=== PATIENT | female | born 1960 | race Caucasian/White ===

== ENCOUNTER 2019-05-08 17:18 | Emergency (ER) | payer OTHER ==
[~2019-05-08] VITALS: Ht 165.1 cm; Wt 104.6 kg
[~2019-05-08 17:18] MED LIST: GUAI100G2 PO
[2019-05-08] MEDS ORDERED: ONDANSETRON PF 4 MG/2 ML VIAL. IVP ONE (17:45)
[2019-05-08] MEDS ORDERED: IV NORMAL SALINE 1,000ML 1,000 ML IV ONE (17:45)
[2019-05-08] MEDS ORDERED: KETOROLAC 30 MG/ML VIAL. IVP ONE (17:45)
--- NOTE | 2019-05-08 17:47 | PHYS DOC ---
Past History Past Medical History: Kidney Stones, Other Past Surgical History: No Surgical History Smoking: Non-smoker Alcohol Use: None Drug Use: None Adult General Chief Complaint Chief Complaint: BACK PAIN OR INJURY HPI HPI Patient is a 58-year-old female presents with a chief complaint of bilateral flank pain left greater than right associated with nausea and vomiting. Patient states onset of symptoms around 1400 hrs. pain progressively becoming worse. Patient states she has previous history kidney stones and pain is similar. Review of Systems Review of Systems Constitutional: Denies fever or chills [] Eyes: Denies change in visual acuity, redness, or eye pain [] HENT: Denies nasal congestion or sore throat [] Respiratory: Denies cough or shortness of breath [] Cardiovascular: No additional information not addressed in HPI [] GI: Denies abdominal pain, bloody stools or diarrhea [positive nausea and vomiting] : Denies dysuria or hematuria [positive flank pain] Musculoskeletal: Denies back pain or joint pain [] Integument: Denies rash or skin lesions [] Neurologic: Denies headache, focal weakness or sensory changes [] Endocrine: Denies polyuria or polydipsia [] All other systems were reviewed and found to be within normal limits, except as documented in this note. Current Medications Current Medications Current Medications Medications (Trade) Dose Ordered Sig/[facility] Start Time Stop Time Status Last Admin Dose Admin Ketorolac Tromethamine (Toradol 30mg Vial) 30 mg 1X ONCE 05/08/19 17:45 05/08/19 17:46 UNV Ondansetron HCl (Zofran) 4 mg 1X ONCE 05/08/19 17:45 05/08/19 17:46 UNV Sodium Chloride 1,000 ml @ 1,000 mls/hr 1X ONCE 05/08/19 17:45 05/08/19 18:44 UNV Allergies Allergies Allergies Coded Allergies Type Severity Reaction Last Updated Verified No Known Drug Allergies 08/13/13 No Physical Exam Physical Exam Constitutional: Well developed, well nourished, no acute distress, non-toxic appearance. [] HENT: Normocephalic, atraumatic, bilateral external ears normal, oropharynx moist, no oral exudates, nose normal. [] Eyes: PERRLA, EOMI, conjunctiva normal, no discharge. [] Neck: Normal range of motion, no tenderness, supple, no stridor. [] Cardiovascular:Heart rate regular rhythm, no murmur [] Lungs & Thorax: Bilateral breath sounds clear to auscultation [] Abdomen: Bowel sounds normal, soft, no tenderness, no masses, no pulsatile masses. [] Skin: Warm, dry, no erythema, no rash. [] Back: No tenderness, no CVA tenderness. [] Extremities: No tenderness, no cyanosis, no clubbing, ROM intact, no edema. [] Neurologic: Alert and oriented X 3, normal motor function, normal sensory function, no focal deficits noted. [] Psychologic: Affect normal, judgement normal, mood normal. [] EKG EKG [] Radiology/Procedures Radiology/Procedures [] Impressions: 1. A 4 mm calculus at the distal left ureter with mild left-sided hydronephrosis. 2. Several nonobstructing left renal calculi. 3. Mild hepatic steatosis. 4. Diverticulosis without evidence of acute diverticulitis. Course & Med Decision Making Course & Med Decision Making Pertinent Labs and Imaging studies reviewed. (See chart for details) []Patient was evaluated for chief complaint. Workup consisted of laboratory analysis and radiologic imaging. Results reviewed and discussed with patient. Patient found to have multiple stones in the left kidney with some hydronephrosis. Patient found to have a 4 mm stone left distal ureter. Patient's urine without infection. Patient was treated with Flomax Toradol and Zofran. She was discharged home with Flomax Zofran and [place]. She was also given a strainer. She is advised to follow up with primary care physician or her urologist. Dragon Disclaimer Dragon Disclaimer This electronic medical record was generated, in whole or in part, using a voice recognition dictation system. Departure Departure: Impression: Primary Impression: Kidney stone Disposition: HOME, SELF-CARE Condition: STABLE Referrals: COOKIE QUINTANILLA MD (PCP) Patient Instructions: Kidney Stones Scripts Tamsulosin Hcl (FLOMAX) 0.4 Mg Cap.er.24h 1 CAP PO DAILY, #14 CAP 11 Refills Prov: ROSETTA PARSONS I DO 05/08/19 Ondansetron Hcl (ZOFRAN) 4 Mg Tablet 1 TAB PO Q6HRS, #14 TAB Prov: ROSETTA PARSONS I DO 20 Hydrocodone Bit/Acetaminophen (NORCO 5-325 TABLET) 1 Each Tablet 1 TAB PO BID, #20 TAB Prov: ROSETTA PARSONS DO 05/08/19 ROSETTA PARSONS DO May 08, 2019 17:47
[2019-05-08 18:07] LABS: BASO % 0 % (0-3); EOS # 0.1 x10^3/uL (0.0-0.7); EOS % 1 % (0-3); HEMATOCRIT 47.5 % (36.0-47.0); HEMOGLOBIN 15.6 g/dL (12.0-15.5); LYMPH # 1.8 x10^3/uL (1.0-4.8); LYMPH % 17 % (24-48); MEAN CORPUSCULAR HEMOGLOBIN 29 pg (25-35); MEAN CORPUSCULAR HGB CONC 33 g/dL (31-37); MEAN CORPUSCULAR VOLUME 89 fL (79-100); MONO # 0.5 x10^3/uL (0.0-1.1); MONO % 5 % (0-9); NEUT # 8.4 x10^3uL (1.8-7.7); NEUT % 78 % (31-73); PLATELET COUNT 209 x10^3/uL (140-400); RED BLOOD COUNT 5.32 x10^6/uL (3.50-5.40); RED CELL DISTRIBUTION WIDTH 13.4 % (11.5-14.5); WHITE BLOOD COUNT 10.9 x10^3/uL (4.0-11.0)
[2019-05-08 18:19] LABS: CALCIUM 9.1 mg/dL (8.5-10.1); CREATININE 1.1 mg/dL (0.6-1.0)
[2019-05-08 18:23] LABS: BILIRUBIN,URINE NEG (NEG); CLARITY,URINE CLOUDY; COLOR,URINE YELLOW; GLUCOSE,URINE NEG (NEG)
[2019-05-08 18:24] LABS: AMORPHOUS SEDIMENT,UR PRESENT /HPF; BACTERIA,URINE 0 /HPF (0-FEW); NITRITE,URINE NEG (NEG); SQUAMOUS EPITHELIAL CELL,UR OCC /LPF; UROBILINOGEN,URINE 0.2 mg/dL (0.2 mg/dL); WBC,URINE OCC /HPF (0-4)
[2019-05-08 18:25] LABS: ALBUMIN 3.8 g/dL (3.4-5.0); TOTAL BILIRUBIN 0.2 mg/dL (0.2-1.0); TOTAL PROTEIN 7.7 g/dL (6.4-8.2)
[2019-05-08] MEDS ORDERED: TAMSULOSIN 0.4 MG CAP.ER.24H. PO ONE (18:30)
--- NOTE | 2019-05-08 18:30 | RAD ---
Exam: CT of abdomen and pelvis without contrast INDICATION: Left flank pain TECHNIQUE: Sequential axial images through the abdomen and pelvis obtained without IV contrast. Sagittal and coronal reformatted images were reconstructed from the axial data and reviewed. Comparisons: None FINDINGS: Heart size is normal. No pericardial effusion strandy opacities at dependent portion lungs likely representing pleural effusion. Evaluation of solid organs is limited secondary to noncontrast technique. Mild diffuse hepatic steatosis. Spleen, pancreas, gallbladder and adrenals are unremarkable. No perinephric inflammation. There is mild left-sided hydronephrosis. There is a 4 mm calculus at the distal left ureter. No other ureteral calculi are identified. Several nonobstructing left renal calculi are noted. Bladder is decompressed not well evaluated. Uterus is not enlarged. No abnormal adnexal mass. There is extensive diverticulosis in the descending and sigmoid colon without evidence of acute diverticulitis. Remainder of the large and small bowel are unremarkable. No obstruction. No free intra-abdominal air or fluid. Appendix is normal. No free intra-abdominal air or fluid. No obstruction. Abdominal aorta has a normal course and caliber. No enlarged abdominal lymph nodes are identified. No suspicious osseous lesions or acute fractures. IMPRESSION: 1. A 4 mm calculus at the distal left ureter with mild left-sided hydronephrosis. 2. Several nonobstructing left renal calculi. 3. Mild hepatic steatosis. 4. Diverticulosis without evidence of acute diverticulitis. Exposure: One or more of the following in the visualized dose reduction techniques were utilized for this examination: 1. Automated exposure control 2. Adjustment of the MA and/or KV according to patient size 3. Use of iterative of reconstructive technique Electronically signed by: Caroline Duque MD (05/08/2019 6:27 PM) [id number]
[2019-05-08] MEDS ORDERED: ONDANSETRON ODT 4 MG TAB.RAPDIS PO ONE (18:45)
[2019-05-08] MEDS ORDERED: HYDR-3165 PO (19:02)
[2019-05-08] MEDS ORDERED: TAMS0.4C97 PO (19:02)
[2019-05-08] MEDS ORDERED: ONDA4TAB7 PO (19:02)
[2019-05-08 20:30] VITALS: BP 111/66
== END 2019-05-08 20:32 | disposition home or self-care (01) ==
LOC: ER 17:18
DX: N20.0 Calculus of kidney (principal); R11.2 Nausea with vomiting, unspecified
CPT/HCPCS: 36415; 74176; 80053; 81001; 85025; 96361; 96374; 96375; 99284; J1885; J2405; Q0162; J7030

== ENCOUNTER 2020-07-06 23:11 | Emergency (ER) | payer OTHER ==
[~2020-07-06] VITALS: Ht 165.1 cm; Wt 102.3 kg
[~2020-07-06 23:11] MED LIST changes: +HYDR-3165 PO; +ONDA4TAB7 PO; +TAMS0.4C97 PO
[2020-07-06 23:31] VITALS: BP 129/77
[2020-07-06] MEDS ORDERED: IBUPROFEN 600 MG TABLET. PO ONE (23:45)
[2020-07-07] MEDS ORDERED: HYDR-2155 PO (00:05)
--- NOTE | 2020-07-07 00:05 | PHYS DOC ---
Past History Past Medical History: DVT, Kidney Stones, Other Additional Past Medical Histor: sleep apnea, wears CPAP Past Surgical History: No Surgical History Smoking: Non-smoker Alcohol Use: None Drug Use: None General Adult EDM: Chief Complaint: LOWER EXT PAIN HPI: HPI: 59 year old female presents with report of LLE pain which started at 1800 tonight. Denies known trauma. Denies shortness of breath or cough. Denies fever/chills. Denies redness or bruising. Reports history of prior DVT and is concerned she might have another clot. Denies chest pain. Review of Systems: Review of Systems: Constitutional: Denies fever or chills Eyes: Denies change in visual acuity, redness, or eye pain HENT: Denies nasal congestion or sore throat Respiratory: Denies cough or shortness of breath Cardiovascular: Denies chest pain or palpitations GI: Denies abdominal pain, nausea, vomiting, or diarrhea : Denies dysuria or hematuria Musculoskeletal: Denies back pain; reports LLE pain Integument: Denies rash or skin lesions Neurologic: Denies headache, focal weakness or sensory changes Complete systems were reviewed and found to be within normal limits, except as documented in this note. Current Medications: Current Meds: Current Medications Medications (Trade) Dose Ordered Sig/[facility] Start Time Stop Time Status Last Admin Dose Admin Ibuprofen (Motrin) 600 mg 1X ONCE 07/06/20 23:45 07/06/20 23:46 DC 07/06/20 23:59 600 MG Allergies: Allergies: Allergies Coded Allergies Type Severity Reaction Last Updated Verified No Known Drug Allergies 08/13/13 No Physical Exam: PE: Constitutional: Well developed, well nourished, no acute distress, non-toxic appearance HENT: Normocephalic, atraumatic Eyes: Conjunctiva normal, no discharge Neck: Normal range of motion, supple Lungs & Thorax: Equal chest rise and fall, no respiratory distress Abdomen: Soft, no tenderness Back: No midline tenderness, no CVA tenderness Skin: Warm, dry, no erythema, no rash Extremities: LLE tenderness, ROM intact, no edema, distal DP and PT pulses +2 bilaterally, distal sensation intact to both legs Neurologic: Alert and oriented X 3, no focal deficits noted Psychologic: Affect normal, judgement normal Current Patient Data: Vital Signs: Vital Signs Date Time Temp Pulse Resp B/P (MAP) Pulse Ox O2 Delivery O2 Flow Rate FiO2 07/06/20 23:31 98.2 86 18 129/77 (94) 98 Room Air EKG: EKG: [] Radiology/Procedures: Radiology/Procedures: PROCEDURE: VENOUS LOWER EXTREMITY LEFT Left Lower Extremity Venous Doppler Ultrasound History: Reason: pain, hx of DVT, eval for DVT / Spl. Instructions: / History: Comparison: None Procedure: Color flow, duplex, spectral analysis and 2D images are obtained with and without compression in the area of the common femoral vein, superficial femoral vein - femoral vein junction, main femoral vein (superficial femoral vein) and popliteal vein. Veins of the proximal calf are also imaged. Findings: There is normal duplex flow, color flow and compressibility of all visualized vein segments. No evidence of deep venous thrombus is present. Impression: No evidence of DVT. Electronically signed by: Bob Pimentel III, MD (07/07/2020 12:49 AM) [facility] Heart Score: C/O Chest Pain: N/A Course & Med Decision Making: Course & Med Decision Making Pertinent Imaging studies reviewed. (See chart for details) Patient with pmh of DVT presents with LLE pain which started at 1800. Patient concerned for reoccurrence of DVT. Limb neurovascularly intact. Pain addre ssed. Venous doppler negative for DVT. Pain possibly neuropathic in nature. Denies back pain. Patient stable for discharge home with outpatient follow-up with PCP. Discussed findings and plan with patient, who acknowledges understanding and agreement. Tanika Disclaimer: Tanika Disclaimer: This electronic medical record was generated, in whole or in part, using a voice recognition dictation system. Departure Departure: Impression: Primary Impression: Pain in left leg Disposition: 01 HOME / SELF CARE / HOMELESS Condition: STABLE Referrals: COOKIE QUINTANILLA MD (PCP) Patient Instructions: Pain of Unknown Etiology (Pain without a known Cause), Pain, Neuropathic Additional Instructions: Please call and follow up with Dr. Fab Levine (pain management) [address] [address] May also take over the counter Ibuprofen for pain or discomfort. Scripts Hydrocodone Bit/Acetaminophen (HYDROCODONE-APAP 5-325 ) 1 Each Tablet 0.5-1 TAB PO PRN Q6HRS PRN for PAIN, #10 TAB 0 Refills Prov: MELLY LEYVA DO 07/07/20 MELLY LEYVA DO Jul 07, 2020 00:05
[2020-07-07] MEDS ORDERED: HYDROcodone/APAP 5/325MG 1 TAB TABLET PO ONE (00:45)
--- NOTE | 2020-07-07 00:51 | RAD ---
Left Lower Extremity Venous Doppler Ultrasound History: Reason: pain, hx of DVT, eval for DVT / Spl. Instructions: / History: Comparison: None Procedure: Color flow, duplex, spectral analysis and 2D images are obtained with and without compress ion in the area of the common femoral vein, superficial femoral vein - femoral vein junction, main fe moral vein (superficial femoral vein) and popliteal vein. Veins of the proximal calf are also imaged. Findings: There is normal duplex flow, color flow and compressibility of all visualized vein segments. No evide nce of deep venous thrombus is present. Impression: No evidence of DVT. Electronically signed by: Bob Pimentel III, MD (07/07/2020 12:49 AM) [facility]
== END 2020-07-07 00:53 | disposition home or self-care (01) ==
LOC: ER 23:11
DX: M79.604 Pain in right leg (principal); Z86.718 Personal history of other venous thrombosis and embolism
CPT/HCPCS: 93971; 99284-25

== ENCOUNTER 2021-01-04 17:09 | Emergency (ER) | payer OTHER ==
[~2021-01-04] VITALS: Ht 165.1 cm; Wt 102.3 kg
[~2021-01-04 17:09] MED LIST changes: +HYDR-2155 PO
[2021-01-04] MEDS ORDERED: KETOROLAC 60 MG/2 ML VIAL. IM ONE (18:00)
[2021-01-04] MEDS ORDERED: HYDROcodone/APAP 10/325 1 TAB TABLET PO ONE (18:00)
--- NOTE | 2021-01-04 18:40 | RAD ---
Exam: CT of lumbar spine without contrast INDICATION: Lower back pain with left lower extremity TECHNIQUE: Sequential axial images through the lumbar spine obtained without IV contrast. Sagittal an d coronal reformatted images were reconstructed from the axial data and reviewed. Exposure: One or more of the following in the visualized dose reduction techniques were utilized for this examination: 1. Automated exposure control 2. Adjustment of the MA and/or KV according to patient size 3. Use of iterative of reconstructive technique Comparisons: 05/08/2019 FINDINGS: Mild height loss involving the superior endplate of L2 with less than 25% height loss, stable when co mpared to the study in April. Otherwise, vertebral body heights and alignment are well-maintained. Fracture to the lumbar spine is not identified. Mild spondylotic changes lumbar spine with degenerative disc disease greatest at L4-L5 with a mild br oad-based disc bulge bilateral facet arthropathy causing mild spinal canal stenosis and mild bilatera l neural foraminal stenosis. Nonobstructing calculus at the upper pole of the left kidney. IMPRESSION: 1. Mild spondylotic changes lumbar spine as described above. 2. Nonobstructing left renal calculus. Electronically signed by: Caroline Duque MD (01/04/2021 6:37 PM) [facility]
--- NOTE | 2021-01-04 19:08 | PHYS DOC ---
Past History Past Medical History: DVT, Kidney Stones, Other Additional Past Medical Histor: vitamin D deficiency, (MELLY WILCOX DISABILITY INSURANCE HEARING OFFICER) Past Surgical History: No Surgical History (MELLY WILCOX DISABILITY INSURANCE HEARING OFFICER) Smoking: Non-smoker Alcohol Use: None Drug Use: None (MELLY WILCOX APRN) Adult General Chief Complaint Chief Complaint: LOWER EXT PAIN HPI HPI Patient is a 60-year-old female, presents emergency department complaining of bilateral lower extremity pains that waxes and wanes since June 2020. Patient reports being seen here and having negative DVT studies, it was recommended she follow-up with her primary care physician which she did and was told to come back to the emergency department for ongoing pain, patient reports she did not fill the recommended pain medications from her last ED visit. Patient states her pain is anywhere between a 3 out of 10 up to a 10 out of 10. Patient rates her current pain at a 10 out of 10. Patient denies any injury to her lower extremities, states that she has had several back injuries when she was younger however has not had any recent follow-up or examination for pain or injury. P atient denies loss of bowel or bladder, denies urinary retention. Denies numbness or tingling distally, denies swelling or edema to her lower extremities. Patient reports she took Aleve 3 hours ago without relief in pain. Patient states her only home medication is vitamin D supplement. Patient denies allergies to medications. Denies other physical complaints or physical concerns. (MELLY WILCOX DISABILITY INSURANCE HEARING OFFICER) Review of Systems Review of Systems 14 body systems of review of systems have been reviewed. See HPI for pertinent positives and negative responses, otherwise all other systems are negative, nonpertinent or noncontributory. Constitutional: Negative except as outlined in HPI above. Skin: Negative except as outlined in HPI above. Eyes: Negative except as outlined in HPI above. HENT: Negative except as outlined in HPI above. Respiratory: Negative except as outlined in HPI above. Cardiovascular: Negative except as outlined in HPI above. GI: Negative except as outlined in HPI above. : Negative except as outlined in HPI above. Musculoskeletal: Negative except as outlined in HPI above. Integument: Negative except as outlined in HPI above. Neurologic: Negative except as outlined in HPI above. Endocrine: Negative except as outlined in HPI above. Lymphatic: Negative except as outlined in HPI above. Psychiatric: Negative except as outlined in HPI above. (MELLY WILCOX APRN) Current Medications Current Medications Current Medications Medications (Trade) Dose Ordered Sig/[facility] Start Time Stop Time Status Last Admin Dose Admin Acetaminophen/ Hydrocodone Bitart (Lortab ) 1 tab 1X ONCE 01/04/21 18:00 01/04/21 18:43 DC 01/04/21 18:10 1 TAB Ketorolac Tromethamine (Toradol Im) 60 mg 1X ONCE 01/04/21 18:00 01/04/21 18:43 DC 01/04/21 18:10 60 MG (MELLY WILCOX APRN) Allergies Allergies Allergies Coded Allergies Type Severity Reaction Last Updated Verified No Known Drug Allergies 08/13/13 No (MELLY WILCOX APRN) Physical Exam Physical Exam Constitutional: Well developed, well nourished, no acute distress, non-toxic appearance. 60-year-old female in no apparent distress. HENT: Normocephalic, atraumatic. Eyes: Conjunctiva normal, no discharge. Neck: Normal range of motion, no stridor. Cardiovascular: No cyanosis appreciated, distal cap refill less than 2 seconds. Lungs & Thorax: Patient is in no respiratory distress, no audible adventitious lung sounds appreciated. Abdomen: Nontender, no abnormalities noted. Skin: Warm, dry, no erythema, no rash. Back: No left-sided or right-sided CVA tenderness TTP, no deformities appreciated, no crepitus appreciated to palpation, mild pain elicited with lumbar area midline palpation. Extremities: , no cyanosis, no clubbing, ROM intact, no edema. Pain to palpation along lateral aspect of left lower extremity, anterior bailey of right lower extremity, no deformities, no swelling or edema appreciated, distal cap refill less than 2 seconds, 2+ dorsalis pedis/posterior tibial pulses, full passive range of motion of ankle and knee and hip joints without eliciting increased pain response. Neurologic: Alert and oriented X 3, normal motor function, normal sensory function, no focal deficits noted. Psychologic: Affect normal, judgement normal, mood normal. (MELLY WILCOX APRN) Current Patient Data Vital Signs Vital Signs Date Time Temp Pulse Resp B/P (MAP) Pulse Ox O2 Delivery O2 Flow Rate FiO2 01/04/21 19:02 18 97 01/04/21 19:00 92 124/69 (87) Room Air 01/04/21 17:28 98.6 (MELLY WILCOX APRN) EKG EKG [] (MELLY WILCOX APRN) Radiology/Procedures Radiology/Procedures PATIENT: JAVY VELASCO JACCOUNT: [id number] : 1960 LOCATION: ER AGE: 60 SEX: F EXAM STATUS: REG ER ORD. PHYSICIAN: MELLY WILCOX APRN REASON: Low back pain with left lower extremity pain PROCEDURE: CT LUMBAR SPINE WO CONTRAST Exam: CT of lumbar spine without contrast INDICATION: Lower back pain with left lower extremity TECHNIQUE: Sequential axial images through the lumbar spine obtained without IV contrast. Sagittal and coronal reformatted images were reconstructed from the axial data and reviewed. Exposure: One or more of the following in the visualized dose reduction techniques were utilized for this examination: 1. Automated exposure control 2. Adjustment of the MA and/or KV according to patient size 3. Use of iterative of reconstructive technique Comparisons: 05/08/2019 FINDINGS: Mild height loss involving the superior endplate of L2 with less than 25% height loss, stable when compared to the study in April. Otherwise, vertebral body heights and alignment are well-maintained. Fracture to the lumbar spine is not identified. Mild spondylotic changes lumbar spine with degenerative disc disease greatest at L4-L5 with a mild broad-based disc bulge bilateral facet arthropathy causing mild spinal canal stenosis and mild bilateral neural foraminal stenosis. Nonobstructing calculus at the upper pole of the left kidney. IMPRESSION: 1. Mild spondylotic changes lumbar spine as described above. 2. Nonobstructing left renal calculus. Electronically signed by: Caroline Duque MD (01/04/2021 6:37 PM) [facility] (MELLY WILCOX APRN) Heart Score C/O Chest Pain: No Risk Factors: Risk Factors: DM, Current or recent (<one month) smoker, HTN, HLP, family history of CAD, obesity. Risk Scores: Risk Factors: DM, Current or recent (<one month) smoker, HTN, HLP, family history of CAD, obesity. (MELLY WILCOX APRN) Course & Med Decision Making Course & Med Decision Making Pertinent Labs and Imaging studies reviewed. (See chart for details) 60-year-old female, vital signs reviewed, presents emergency department complaint of lower extremity pains. Patient does have past medical history of DVTs years ago, kidney stones, sleep apnea in which she wears a CPAP. Patient is a non-smoker. Physical examination concerning for possible lumbar spine dyscrasia, will order CT lumbar spine, pain sensations most likely a neuropathy onset. Will give p.o. pain medications. Patient reports p.o. pain medications has relieved her pain down to an [address] lumbar spine negative for acute fracture however does show degenerative changes. Discussed findings with patient, discussed symptoms most likely neuropathy in nature. Discussed strict follow-up with neurology and primary care this week for ongoing investigation and evaluation of bilateral lower extremity pain sensations. Patient is amenable to this plan. Patient does walk with steady gait. Does not favor left or right lower extremity over the other. Discussed with the patient all findings and diagnostic testing as well as the need to follow-up with their primary care provider for further evaluation and treatment or return to the ED if any new or worsening symptoms. Strict return precautions were also discussed at length, the patient voiced understanding and agreement with the discharge planning. The patient was nontoxic in appearance, in no apparent distress, and hemodynamically stable at the time of disposition. (MELLY WILCOX APRN) Course & Med Decision Making I was the Attending physician on the above date of service of this patient. This patient was evaluated, examined, treated, and dispositioned from the emergency department by the mid-level practitioner. Although I was working at the time , no assistance was requested. Electronically signed, Ryan Bowen DO (RYAN BOWEN DO) Tanika Disclaimer Dragye Disclaimer This electronic medical record was generated, in whole or in part, using a voice recognition dictation system. (MELLY WILCOX APRN) Departure Departure: Impression: Primary Impression: Pain in left leg Additional Impressions: Pain in right leg Abnormal CT scan, lumbar spine Disposition: HOME / SELF CARE / HOMELESS Condition: GOOD Referrals: COOKIE ALBA MD (PCP) KOKI COWART MD Additional Instructions: You were seen today in the emergency department for pain of your lower extremities. You have had the sensation since mid June of this year. You were given pain medication in the emergency department today that helped some. I am prescribing you pain medication for home. As we discussed at length, please follow-up with a neurologist, you may use Dr. Cowart or any neurologist of your choice. Your CT scan of your lumbar spine showed some degenerative changes that may be the root cause of your lower extremity discomfort. Please follow-up soon with a neurologist, also follow-up with your primary care physician Dr. Alba soon so that she may recommend ongoing referrals and manage your pain and ongoing medical problems. Please return immediately to the emergency department for worsening symptoms or other concerns. Thank you for visiting our Emergency Department. It was a pleasure taking care of you today in the emergency department and we appreciate you trusting us with your care. If any additional problems come up don't hesitate to return to visit us. Please follow up with your primary care provider so they can plan additional care if needed and know about the problem that you had. If symptoms worsen come back to the Emergency Department. Any concerning symptoms that start such as chest pain, shortness of air, weakness or numbness on one side of the body, running high fevers or any other concerning symptoms return to the ER. Scripts Ibuprofen (IBUPROFEN) 600 Mg Tablet 600 MG PO Q6-8HRS PRN for leg pain, #30 TAB 0 Refills Prov: MELLY WILCOX APRN 01/04/21 Hydrocodone Bit/Acetaminophen (HYDROCODONE-APAP 5-325 ) 1 Each Tablet 1 TAB PO PRN Q6HRS PRN for SEVERE PAIN 7-10, #12 TAB 0 Refills Prov: MELLY WILCOX APRN 01/04/21 Problem Qualifiers MELLY WILCOX APRN Jan 04, 2021 19:08 RYAN BOWEN DO Jan 06, 2021 12:14
[2021-01-04] MEDS ORDERED: IBUP600T16 PO (19:47)
[2021-01-04] MEDS ORDERED: HYDR-2155 PO (19:47)
[2021-01-04 19:57] VITALS: BP 107/80
== END 2021-01-04 20:05 | disposition home or self-care (01) ==
LOC: ER 17:09
DX: M51.36 Other intervertebral disc degeneration, lumbar region (principal); M79.662 Pain in left lower leg; M79.661 Pain in right lower leg; Z87.442 Personal history of urinary calculi
CPT/HCPCS: 72131; 96372; 99284; J1885